=== PATIENT | female | born 1995 | race Caucasian/White ===

== ENCOUNTER 2017-12-14 22:32 | Emergency (ER) | payer OTHER ==
[~2017-12-14] VITALS: Ht 162.6 cm; Wt 74.6 kg
[~2017-12-14 22:32] MED LIST: BCPILLS PO; NEOM1SUS21 OP
[2017-12-14 22:35] VITALS: TEMP 36.5; Ht 162.6 cm; Wt 74.6 kg
[2017-12-14] MEDS ORDERED: LIDOCAINE HCL 2% VISC SOLN 20 ML UDC PO STA (22:48)
[2017-12-14] MEDS ORDERED: ALUMINUM/MAGNESIUM SUSP 30 ML UDC PO STA (22:48)
[2017-12-14 23:22] LABS: BASO % 0.5 %; BASO ABS # 0.04 K/uL (0-0.2); EOS % 1.6 %; EOS ABS # 0.14 K/uL (0-0.5); HEMOGLOBIN 13.9 g/dL (12.0-16.0); IG# 0.01 K/uL (0.00-0.02); LYMPH % 23.3 %; LYMPH ABS # 2.07 K/uL (1.2-3.4); MEAN CELL VOLUME 91.9 fL (80-100); MEAN CORPUSCULAR HEMOGLOBIN 30.4 pg (25-34); MEAN CORPUSCULAR HGB CONC 33.1 g/dl (32-36); MEAN PLATELET VOLUME 10.3 fL (7.4-10.4); MONO % 7.7 %; MONO ABS # 0.68 K/uL (0.11-0.59); NEUT % 66.8 %; NEUT ABS # 5.94 K/uL (1.4-6.5); PLATELET COUNT 247 K/uL (130-400); RED CELL DISTRIBUTION WIDTH CV 13.3 % (11.5-14.5); RED CELL DISTRIBUTION WIDTH SD 44.7 fL (36.4-46.3); WHITE BLOOD COUNT 8.88 K/uL (4.8-10.8)
[2017-12-14 23:44] LABS: ALBUMIN 4.2 gm/dl (3.4-5.0); CALCIUM 8.6 mg/dl (8.5-10.1); CREATININE 1.12 mg/dl (0.60-1.20); POTASSIUM 3.2 mmol/L (3.5-5.1)
[2017-12-14 23:46] LABS: TOTAL PROTEIN 8.2 gm/dl (6.4-8.2)
[2017-12-14] MEDS ORDERED: POTASSIUM CHLORIDE 10 MEQ TABCR PO STA (23:58)
[2017-12-15] MEDS ORDERED: PANT1TAB3 PO (00:36)
[2017-12-15] MEDS ORDERED: PANTOprazole SOD 40 MG TAB PO STA (00:43)
[2017-12-15 00:55] VITALS: BP 110/78; PULSE 98; O2SAT 99
--- NOTE | 2017-12-15 03:47 | EMERGENCY ROOM VISIT NOTE ---
History First contact with patient: 22:40 Chief Complaint: ABDOMINAL PAIN Stated Complaint: ABD PAIN-ENOUGH TO CRY Nursing Triage Summary: Patient states she was at work and got an extreme pain. States she has bee getting painful episodes like this on and off for one year. History of Present Illness The patient is a 22 year old female who presents to the Emergency Room with complaints of intermittent abdominal discomfort for the past few years that comes and goes in severity. Patient states she developed epigastric discomfort tonight at work described as discomfort, ranging in severity 7 out of 10. Nothing makes it better or worse. Patient states intermittently throughout the year she has had blood when she wipes when she has a bowel movement. She has had a in the past. Patient denies chest pain, dyspnea, nausea, vomiting, diarrhea, black stool, urinary symptoms, vaginal itching or discharge. No colonoscopy in the past. No family history of inflammatory bowel disease. Review of Systems An 10 system review of systems was completed with positives and pertinent negatives listed in the HPI. Past Medical/Surgical History Medical Problems: (1) Frequent UTIs (2) Ovarian cysts Family History Cancer Social History Smoking Status: Never Smoker Alcohol Use: none Marital Status: in relationship Occupation Status: unemployed, student Current/Historical Medications Scheduled Pantoprazole (Protonix), 40 MG PO DAILY Physical Exam Vital Signs Date Time Temp Pulse Resp B/P (MAP) Pulse Ox O2 Delivery O2 Flow Rate FiO2 12/15/17 00:55 98 18 110/78 99 12/15/17 00:35 98 18 110/78 99 Room Air 12/14/17 22:58 Room Air 12/14/17 22:35 36.5 103 18 126/62 100 Room Air Physical Exam VITALS: Vitals are noted on the nurse's note and reviewed by myself. Vital signs stable. GENERAL: Pleasant female, in no acute distress, nondiaphoretic, well-developed well-nourished. SKIN: The skin was without rashes, erythema, edema, or bruising. There is no tenting of the skin. Capillary reflex less than 2 seconds. HEAD: Normocephalic atraumatic. EARS: External auditory canals clear, tympanic membranes pearly jackson without erythema or effusion bilaterally. EYES: Pupils equal round and reactive to light and accommodation. Conjunctivae without injection, sclerae without icterus. Extraocular movements intact. NOSE: Patent, turbinates without inflammation or discharge. MOUTH: Mucous membranes moist. Pharynx without erythema or exudate. Uvula midline. Airway patent. Tongue does not deviate. NECK: Supple without nuchal rigidity. No lymphadenopathy. No thyromegaly. Cervical spine is nontender. No JVD. HEART: Regular rate and rhythm without murmurs gallops or rubs. LUNGS: Clear to auscultation bilaterally without wheezes, rales or rhonchi. No retractions or accessory muscle use. ABDOMEN: Positive bowel sounds x 4. Normal tympanic percussion. Soft, nontender, without masses or organomegaly. Carter sign negative. No guarding or rebound tenderness. No CVA tenderness MUSCULOSKELETAL: No muscle atrophy, erythema, or edema noted. NEURO: Patient was alert and oriented to person place and time. Normal sensation to light and sharp touch. No focal neurological deficits. Medical Decision & Procedures Laboratory Results 12/14/17 23:00 Red Blood Count 4.57, Mean Corpuscular Volume 91.9, Mean Corpuscular Hemoglobin 30.4, Mean Corpuscular Hemoglobin Concent 33.1, Mean Platelet Volume 10.3, Neutrophils (%) (Auto) 66.8, Lymphocytes (%) (Auto) 23.3, Monocytes (%) (Auto) 7.7, Eosinophils (%) (Auto) 1.6, Basophils (%) (Auto) 0.5, Neutrophils # (Auto) 5.94, Lymphocytes # (Auto) 2.07, Monocytes # (Auto) 0.68, Eosinophils # (Auto) 0.14, Basophils # (Auto) 0.04 12/14/17 23:00 Test 12/14/17 23:00 White Blood Count 8.88 K/uL (4.8-10.8) Red Blood Count 4.57 M/uL (4.2-5.4) Hemoglobin 13.9 g/dL (12.0-16.0) Hematocrit 42.0 % (37-47) Mean Corpuscular Volume 91.9 fL (80-100) Mean Corpuscular Hemoglobin 30.4 pg (25-34) Mean Corpuscular Hemoglobin Concent 33.1 g/dl (32-36) Platelet Count 247 K/uL (130-400) Mean Platelet Volume 10.3 fL (7.4-10.4) Neutrophils (%) (Auto) 66.8 % Lymphocytes (%) (Auto) 23.3 % Monocytes (%) (Auto) 7.7 % Eosinophils (%) (Auto) 1.6 % Basophils (%) (Auto) 0.5 % Neutrophils # (Auto) 5.94 K/uL (1.4-6.5) Lymphocytes # (Auto) 2.07 K/uL (1.2-3.4) Monocytes # (Auto) 0.68 K/uL (0.11-0.59) Eosinophils # (Auto) 0.14 K/uL (0-0.5) Basophils # (Auto) 0.04 K/uL (0-0.2) RDW Standard Deviation 44.7 fL (36.4-46.3) RDW Coefficient of Variation 13.3 % (11.5-14.5) Immature Granulocyte % (Auto) 0.1 % Immature Granulocyte # (Auto) 0.01 K/uL (0.00-0.02) Urine Color YELLOW Urine Appearance CLEAR (CLEAR) Urine pH 5.0 (4.5-7.5) Urine Specific [place] 1.022 (1.000-1.030) Urine Protein NEG (NEG) Urine Glucose (UA) NEG (NEG) Urine Ketones TRACE (NEG) Urine Occult Blood NEG (NEG) Urine Nitrite NEG (NEG) Urine Bilirubin NEG (NEG) Urine Urobilinogen NEG (NEG) Urine Leukocyte Esterase MODERATE (NEG) Urine WBC (Auto) 10-30 /hpf (0-5) Urine RBC (Auto) 0-4 /hpf (0-4) Urine Hyaline Casts (Auto) 0 /lpf (0-5) Urine Epithelial Cells (Auto) >30 /lpf (0-5) Urine Bacteria (Auto) 1+ (NEG) Urine Mucus PRESENT (NONE PRSENT) Anion Gap 8.0 mmol/L (3-11) Est Creatinine Clear Calc Drug Dose 77.3 ml/min Estimated GFR () 80.2 Estimated GFR (Non- 69.2 BUN/Creatinine Ratio 13.6 (10-20) Calcium Level 8.6 mg/dl (8.5-10.1) Total Bilirubin 0.4 mg/dl (0.2-1) Direct Bilirubin 0.1 mg/dl (0-0.2) Aspartate Amino Transf (AST/SGOT) 14 U/L (15-37) Alanine Aminotransferase (ALT/SGPT) 22 U/L (12-78) Alkaline Phosphatase 67 U/L (45-117) Total Protein 8.2 gm/dl (6.4-8.2) Albumin 4.2 gm/dl (3.4-5.0) Lipase 241 U/L (73-393) Human Chorionic Gonadotropin, Qual NEG (NEG) Medications Administered Medications (Trade) Dose Ordered Sig/César Route Start Time Stop Time Status Last Admin Dose Admin Lidocaine HCl (Viscous Lidocaine 2% Soln) 10 ml NOW STAT PO 12/14/17 22:48 12/14/17 22:51 DC 12/14/17 22:58 10 ML Al Hydroxide/Mg Hydroxide (Maalox Susp) 30 ml NOW STAT PO 12/14/17 22:48 12/14/17 22:51 DC 12/14/17 22:58 30 ML Potassium Chloride (Klor-Con M10) 30 meq NOW STAT PO 12/14/17 23:58 12/14/17 23:59 DC 12/15/17 00:33 30 MEQ Pantoprazole Sodium (Protonix Tab) 40 mg NOW STAT PO 12/15/17 00:43 12/15/17 00:44 DC 12/15/17 00:51 40 MG ED Course Prior records/ancillary studies reviewed. Triage Nursing notes reviewed. The patient's history was concerning for abdominal pain. Differential diagnosis: Etiologies such as appendicitis, diverticulitis, PUD, biliary pathology, UTI, pancreatitis, obstruction, mesenteric ischemia, aortic pathology, infections, inflammatory bowel disease, renal colic, as well as others were entertained. Physical examination findings: As above. ER treatment provided: IV fluids, GI cocktail On reassessment the patient felt better. Diagnostics interpreted by me: The labs revealed hypokalemia this is replaced orally. Negative hCG. Urine seems consistent with contamination and sent for culture. Patient has no urinary symptoms and would prefer to wait for urine culture results instead of taking antibiotics now. I felt this is reasonable Imaging studies: Ultrasound was reviewed and negative for acute cholecystitis Exam and history seem consistent with abdominal discomfort that has been intermittent for a while that could be related to reflux. Patient felt much better after the GI cocktail. She did not have acute abdomen on exam. She is well-appearing. Stable H&H. She was given a list of family care doctors and advised to follow-up for further evaluation and treatment and advised to take medications as directed. She is advised if her blood in her stool recurs or persists that has been intermittent to get a colonoscopy. She was advised to return to the ER [facility] for abdominal pain, fevers, vomiting, worsening signs or symptoms or as needed.By the evaluation outlined above emergent etiologies such as appendicitis, diverticulitis, PUD, biliary pathology, UTI, pancreatitis, obstruction, mesenteric ischemia, aortic pathology, infections, inflammatory bowel disease, renal colic, as well as others were deemed relatively unlikely. The pt informed about the findings as listed above. All questions were answered and pleased with the treatment. Return instructions were outlined and the patient was discharged in stable condition. Outpatient prescription management: Protonix Referral: The patient was referred back to their primary care physician for follow-up in 2 to 3 days for a recheck of the current condition. Case reviewed with my attending The chart was completed utilizing [employer] Speech voice recognition software. Grammatical errors, random word insertions, pronoun errors, and incomplete sentences are an occassional consequence of this system due to software limitations, ambient noise, and hardware issues. Any formal questions or concerns about the content, text, or information contained within the body of this dictation should be directly addressed to the physician assistant professor of life sciences for clarification. Medical Decision As above Medication Reconcilliation Current Medication List: was personally reviewed by me Blood Pressure Screening Patient's blood pressure: Normal blood pressure Impression Primary Impression: Generalized abdominal discomfort Additional Impression: Hypokalemia Departure Information Dispostion Home / Self-Care Condition GOOD Prescriptions Pantoprazole (PROTONIX) 40 Mg Tab 40 MG PO DAILY for 14 Days, #14 TAB Prov: Jessie Platt .VIKTORIA 12/15/17 Forms HOME CARE DOCUMENTATION FORM, Work Instructions, Return To Work: 1 day IMPORTANT VISIT INFORMATION Patient Instructions GERD, Abdominal Pain - [facility], My [facility] Additional Instructions You have 2 small hemangiomas most likely on your liver. You should get further imaging on this to verify this with the family care doctor. Protonix 40 m tablet daily for next 2 weeks. Take this on an empty stomach. Try Maalox or Zantac for breakthrough symptoms for reflux. Avoid large meals. Avoid acidic foods. Rest and drink plenty of fluids as tolerated. Continue current medications. Avoid strenuous activities and anything that worsens your pain. Resume normal activities once your symptoms resolve. Return to the ER immediately for worsening or persistent chest pain, abdominal pain, black or blood in your stools, vomiting, fevers, chest pains, difficulty breathing, worsening of your condition, or as needed. Follow up with your primary physician in 2-3 days for a recheck of your current condition. Work Instructions Return To Work: 1 day Problem Qualifiers
--- NOTE | 2017-12-15 07:07 | DIAGNOSTIC IMAGING REPORT ---
ULTRASOUND RIGHT UPPER QUADRANT ABDOMEN CLINICAL HISTORY: Epigastric abdominal pain. COMPARISON STUDY: Abdominal CT dated 03/03/2014. TECHNIQUE: Real-time, grayscale, and color flow sonography of the right upper quadrant of the abdomen was performed. Images are reviewed in the transverse and longitudinal planes. FINDINGS: Liver: The liver is normal in size and echotexture. There is no intrahepatic biliary ductal dilatation. The main portal vein is patent. There are 2 well-circumscribed echogenic lesions in the right lobe measuring 1.9 cm and 1.7 cm. These are typical typical in appearance for small hemangiomas. Gallbladder: The gallbladder is normal in appearance. No gallstones are identified. There is no gallbladder wall thickening or pericholecystic fluid. A sonographic Carter's sign is reportedly absent. The common bile duct measures up to 0.2 cm in diameter. Pancreas: Visualized portions of the pancreatic head and body are normal in appearance. The splenic vein is patent. Right kidney: Survey images of the right kidney demonstrate normal size and echotexture. There is no hydronephrosis. Ascites: None. IMPRESSION: 1. No acute sonographic abnormality is identified in the right upper quadrant. No gallstones are identified. 2. There are 2 small well-circumscribed echogenic lesions in the right hepatic lobe typical in appearance for hemangiomas. These were also seen by CT on 03/03/2014 and are of doubtful significance. Electronically signed by: Mau Alas M.D. 12/15/2017 7:06 AM Dictated Date/Time: 12/15/2017 7:04 AM
== END 2017-12-15 00:55 | disposition home or self-care (01) ==
LOC: C.EDB 22:33 → C.EDC 12-15 00:55
DX: E87.6 Hypokalemia (principal); Z87.440 Personal history of urinary (tract) infections; Z80.9 Family history of malignant neoplasm, unspecified; Z79.899 Other long term (current) drug therapy